=== PATIENT | male | born 1940 | race Caucasian/White ===

== ENCOUNTER 2019-11-06 14:16 | Outpatient (CLI) | payer MEDICARE, SELFPAY ==
--- NOTE | 2019-11-06 14:36 | XR_ITS ---
WS: [id number] XR chest 2V* 21266 REASON FOR EXAM: J44.0 R06.02 FINDINGS: The cardiac silhouette is not grossly enlarged there is arteriosclerotic changes seen in th e arch the aorta. The peripheral lungs are well aerated. There is no pneumonia, pleural effusion, pulmonary edema, or m ass effect. The hilum is and apices are normal. No osseous abnormalities. XR/XR chest 2V* 19029 IMPRESSION: Arteriosclerotic changes.
== END 2019-11-06 14:17 | disposition home or self-care (01) ==
LOC: RAD 14:20
PROVIDERS: Family Provider Internal Medicine; PCP Internal Medicine; Visit Provider Internal Medicine Nephrology
DX: I70.0 Atherosclerosis of aorta (principal)
CPT/HCPCS: 71046

== ENCOUNTER 2019-11-20 17:01 | Emergency (ER) | payer MEDICARE, SELFPAY ==
[2019-11-20 17:16] VITALS: BP 163/73; PULSE 77; RESP 14; TEMP 36.4; O2SAT 100; BMI 37.9
--- NOTE | 2019-11-20 17:21 | XR_ITS ---
WS: [id number] CHEST XRAY TECHNIQUE: Portable chest. CLINICAL INFORMATION: chest pain COMPARISON: November 06, 2019 FINDINGS: Heart: Cardiomegaly. Aortic calcification. Lungs: Lungs are clear. No consolidation or pleural effusion. No acute pulmonary infiltrates. Bones: Normal visualized bony structures. XR/XR chest 1V portable [id number] IMPRESSION: No acute chest findings
--- NOTE | 2019-11-20 17:21 | ECG_ITS ---
Measurements Intervals [place] Rate: 77 P: [place]: 0 QRS: 131 QRSD: 167 T: -9 QT: 450 QTc: 512 ATRIAL FIBRILLATION WITH ABERRANT CONDUCTION OR VENTRICULAR PREMATURE COMPLEXES MARKED RIGHT AXIS DEVIATION [QRS AXIS > 100] RIGHT BUNDLE BRANCH BLOCK [120+ ms QRS DURATION, UPRIGHT V1, 40+ ms S IN I/ I/aVL/V4/V5/V6] Compared to ECG 03/07/2018 03:26:56 Ventricular premature complex(es) now present Aberrant conduction of supraventricular beat(s) now present Electronically Signed On 11-20-2019 20:51:20 CDT by Prem Buchanan M.D. [email or web address]
--- NOTE | 2019-11-20 17:29 | W.ED.CHESTPA ---
HPI - Chest Pain General: Chief Complaint: Chest Pain Stated Complaint: cp Time Seen by Provider: 11/20/19 17:21 History of Present Illness: HPI narrative: Patient is an 79-year-old gentleman who presents today with chest pain and high blood pressure. He says that his home health nurse noticed his blood pressure was high and gave him a nitro glycerin tablet. He said it helped the chest pain that he was having at that time. He denies any prior history of heart attacks but does take isosorbide mononitrate. He is on peritoneal dialysis. He says he has been having this chest pain off and on for about 2 weeks. He feels pinching on his left side when he moves his arm. He is not sure if it is worse when he is active. He does not feel short of breath. He does have swelling in his legs but that is unchanged for him. He denies cough or shortness of breath. There is no rash on the skin. He said he can feel it up under his shoulder blade. MD complaint: chest pain Pertinent past history: coronary artery disease Onset (ago): week(s) (2) Timing of current episode: episodic Onset: during rest Pain location: left chest and lateral Pain radiation: none Severity: moderate Quality: sharp (Like he is being cut with a knife) Relieving factors: nitroglycerin Exacerbating factors: movement (Movement of his left arm) and other Associated symptoms: Reports fever(s); Deny abdominal pain, dyspnea, nausea or vomiting Review of Systems General: Reports: 10 or more systems reviewed and unremarkable except in HPI and below Const: Reports: fever(s), chills and change in weight Eyes: Denies: change in vision ENMT: Denies: odynophagia Card: Denies: chest pain or swelling of feet/ankles Resp: Denies: dyspnea, productive cough or non-productive cough GI: Denies: abdominal pain, nausea or vomiting : Denies: flank pain Musc: Denies: neck pain or back pain Skin/Breast: Denies: rash Neuro: Denies: headache(s), numbness in extremities or weakness in extremities Derek/Lymph: Denies: easy bruising or easy bleeding PFSH ED PFSH: Social History Smoking and tobacco status: former smoker Physical Exam Const: COMMON NORMALS: no acute distress, patient oriented x3, no limitations and alert GENERAL APPEARANCE: cooperative and comfortable NUTRITIONAL APPEARANCE: obese morbidly obese HENMT: HEAD & SCALP: normal to inspection FACE & SINUS: normal facial exam Eye: GENERAL EYE: appearance normal, both eyes and all related structures Neck/C-Spine: COMMON NORMALS: supple, no meningeal signs and no JVD Chest: COMMONS NORMALS: normal inspection of the chest Resp: COMMON NORMALS: normal respiratory effort, No use of accessory muscles and clear to auscultation bilaterally AUSCULTATION: clear to auscultation bilaterally Cardio: COMMON NORMALS: no JVD, regular rate, regular rhythm and No murmurs present (Cardio) RATE: regular rate RHYTHM: regular rhythm GI: COMMON NORMALS: Normal to inspection, nondistended, normoactive bowel sounds present, Soft to palpation and non-tender INSPECTION: Yes other (Peritoneal dialysis catheter in the right lower abdomen) AUSCULTATION: Yes normoactive bowel sounds PALPATION: Yes Soft to palpation Back/Pelvis: COMMON NORMALS: thoracic and lumbar spine normal to inspection Extremity: COMMON NORMALS: normal to inspection; negative for no pedal edema GENERAL: No calf tenderness Neuro: COMMON NORMALS: patient oriented x3, moves all extremities, no focal motor deficits and no sensory deficits noted SENSORIUM/ORIENTATION: Yes alert MENINGEAL SIGNS: Yes no meningeal signs Psych: COMMON NORMALS: mental status grossly normal, cooperative and normal affect Skin: COMMON NORMALS: no rashes or lesions noted and turgor normal GENERAL SKIN EXAM: no rashes or lesions noted and turgor normal Course ED course: Patient is pain-free in the department. He reports that pain was relieved by nitroglycerin given by his home health nurse. Initial EKG shows A. fib with a wide QRS complex but no acute ST changes. Chest x-ray unremarkable. Labs show the expected electrolyte and kidney abnormalities as well as an elevated troponin of 125. This could be related to his kidney function as well and a delta troponin will be obtained in 2 hours. Reevaluation(s): Reevaluation #1: Patient has had no complaints since being in the ER. His EKGs are abnormal but at baseline. His initial troponin was elevated, likely related to his renal disease. The delta troponin actually decreased. His chest pain is very atypical and related to movement of his arm. He describes it as a pinching or cutting in his skin. We discussed the possibility of shingles however it is been going on for long enough that there should be some evidence of that were that the case. He is due to take his normal blood pressure medications. He is having symptoms of a UTI and does have positive leukocyte esterase on his urine. I told Zenon to try an oral antibiotic although he said that last time he had a UTI he had to be on shots which makes me wonder about resistance. I sent a culture and look for prior culture results but did not find any. He also has an elevated INR at 5. He understands the implications of this. I instructed him to stop his Coumadin which he normally takes in the morning. He will not take it Tuesday or . afternoon he will go to [facility] and have his INR checked. He will continue his peritoneal dialysis. We discussed the option of admitting him to the hospital for further evaluation of his heart. He understands that the testing we do in the ER is not a final diagnosis that there is no heart issue. He prefers to go home and follow-up as an outpatient. Vital Signs: Vital signs: Vital Signs Temperature 97.5 F L 11/20/19 17:16 Pulse Rate 63 11/20/19 21:29 Respiratory Rate 18 11/20/19 21:29 Blood Pressure 159/127 11/20/19 21:29 Pulse Oximetry 98 11/20/19 21:29 MDM - Chest Pain Lab Data: Labs: Lab Results 11/20/19 11/20/19 11/20/19 Range/Units 17:43 17:43 17:43 WBC 9.1 (4.0-10.0) 10^3/ uL RBC 4.53 (4.1-5.3) 10^6/u L Hgb 14.4 (11.7-16.6) g/dL Hct 43.1 (42.0-52.0) % MCV 95.1 H (80-94) fL MCH 31.8 (28.0-34.0) pg MCHC 33.4 (30.0-36.0) g/dL RDW 12.8 (12.1-15.1) % Plt Count 169 (130-400) 10^3/c mm MPV 10.0 (7.4-10.4) fL Neut % (Auto) 59.3 % Lymph % (Auto) 22.9 % Gonzales % (Auto) 11.5 % Eos % (Auto) 5.5 % Baso % (Auto) 0.6 % Neut # (Auto) 5.4 (1.8-7.7) 10^3/u L Lymph # (Auto) 2.1 (0.8-4.8) 10^3/u L Gonzales # (Auto) 1.0 H (0.2-0.9) 10^3/u L Eos # (Auto) 0.5 (0.0-0.8) 10^3/u L Baso # (Auto) 0.1 (0.0-0.1) 10^3/u L Nucleated RBC % (a uto) 0 % Nucleated RBCs # 0.0 /100WBC PT 52.80 H (10.5-13.3) SECO NDS INR 5.57 H* (0.8-1.2) APTT 43.9 H (23.9-36.7) SECO NDS Sodium 130 L (136-145) mmol/L Potassium 3.9 (3.5-5.1) mmol/L Chloride 90 L (98-107) mmol/L Carbon Dioxide 25 (22-29) mmol/L Anion Gap 18.9 (5-19) BUN 74 H (8-23) mg/dL Creatinine 3.9 H (0.7-1.2) mg/dL Glucose 187 H (65-115) mg/dL Calculated Osmolal ity 274 L (285-295) mOsm/k g Calcium 9.9 (8.5-10.5) mg/dL Total Bilirubin 0.3 (0.15-1.2) mg/dL AST 33 (0-40) U/L ALT 27 (0-41) U/L Alkaline Phosphata se 128 (40-130) IU/L Troponin T Baselin e (0-15) ng/mL Troponin T 120 Min maksim (0-15) ng/mL Delta Troponin T (0-10) ABS# Total Protein 8.2 (6.6-8.7) g/dL Albumin 4.0 (3.5-5.2) g/dL Globulin 4.2 (1.3-4.6) g/dL Urine Color (Yellow) Urine Appearance (CLEAR) Urine pH (5-7) Ur Specific Gravit y (1.005-1.030) Urine Protein (Negative) Urine Glucose (UA) (Normal) Urine Ketones (Negative) Urine Blood (Negative) Urine Nitrate (Negative) Urine Bilirubin (NEGATIVE) Urine Urobilinogen (Negative) mg/dL Ur Leukocyte Kierra ase (Negative) Urine RBC (0-2) /hpf Urine WBC (0-5) /hpf Ur Squamous Epith Cells (0-5) Urine Bacteria (NONE) Urine Yeast 11/20/19 11/20/19 11/20/19 Range/Units 17:43 18:32 19:24 WBC (4.0-10.0) 10^3/ uL RBC (4.1-5.3) 10^6/u L Hgb (11.7-16.6) g/dL Hct (42.0-52.0) % MCV (80-94) fL MCH (28.0-34.0) pg MCHC (30.0-36.0) g/dL RDW (12.1-15.1) % Plt Count (130-400) 10^3/c mm MPV (7.4-10.4) fL Neut % (Auto) % Lymph % (Auto) % Gonzales % (Auto) % Eos % (Auto) % Baso % (Auto) % Neut # (Auto) (1.8-7.7) 10^3/u L Lymph # (Auto) (0.8-4.8) 10^3/u L Gonzales # (Auto) (0.2-0.9) 10^3/u L Eos # (Auto) (0.0-0.8) 10^3/u L Baso # (Auto) (0.0-0.1) 10^3/u L Nucleated RBC % (a uto) % Nucleated RBCs # /100WBC PT (10.5-13.3) SECO NDS INR (0.8-1.2) APTT (23.9-36.7) SECO NDS Sodium (136-145) mmol/L Potassium (3.5-5.1) mmol/L Chloride (98-107) mmol/L Carbon Dioxide (22-29) mmol/L Anion Gap (5-19) BUN (8-23) mg/dL Creatinine (0.7-1.2) mg/dL Glucose (65-115) mg/dL Calculated Osmolal ity (285-295) mOsm/k g Calcium (8.5-10.5) mg/dL Total Bilirubin (0.15-1.2) mg/dL AST (0-40) U/L ALT (0-41) U/L Alkaline Phosphata se (40-130) IU/L Troponin T Baselin e 125 H* (0-15) ng/mL Troponin T 120 Min maksim 106.8 H (0-15) ng/mL Delta Troponin T -18.2 L (0-10) ABS# Total Protein (6.6-8.7) g/dL Albumin (3.5-5.2) g/dL Globulin (1.3-4.6) g/dL Urine Color Yellow (Yellow) Urine Appearance Turbid (CLEAR) Urine pH 5 (5-7) Ur Specific Gravit y 1.015 (1.005-1.030) Urine Protein 3+ H (Negative) Urine Glucose (UA) 1+ (Normal) Urine Ketones Negative (Negative) Urine Blood 3+ H (Negative) Urine Nitrate Negative (Negative) Urine Bilirubin Neg (NEGATIVE) Urine Urobilinogen Norm (Negative) mg/dL Ur Leukocyte Kierra ase 2+ H (Negative) Urine RBC 10-15 H (0-2) /hpf Urine WBC Too numerous to c nt H (0-5) /hpf Ur Squamous Epith Cells 0-4 H (0-5) Urine Bacteria 2+ H (NONE) Urine Yeast Trace EKG Data^: EKG 1: EKG interpretation date: 11/20/19 EKG interpretation time: 17:21 Interpretation: A fib, rate 77. Wide QRS complex, 167 msec. RAD, RBBB. No acute ST ischemia Discharge Plan Discharge Patient Disposition: Home, Self-Care Clinical Impression: Atypical chest pain, Warfarin-induced coagulopathy, Peritoneal dialysis status Condition: Stable Prescriptions: New cefdinir 300 mg capsule 300 mg PO DAILY 5 Days Qty: 10 RF: 0 No Action atorvastatin 20 mg tablet 20 mg PO BEDTIME RF: 0 metolazone 5 mg tablet 5 mg PO DAILY RF: 0 amlodipine 5 mg tablet 5 mg PO DAILY RF: 0 warfarin 4 mg tablet See Rx Instructions .ROUTE .COMPLEX RF: 0 isosorbide mononitrate 60 mg tablet extended release 24 hr 60 mg PO DAILY RF: 0 potassium chloride 20 mEq tablet,ER particles/crystals 20 meq PO BID RF: 0 tamsulosin 0.4 mg capsule 0.4 mg PO BEDTIME RF: 0 furosemide 80 mg tablet 80 mg PO BID RF: 0 calcitriol 0.5 mcg capsule See Rx Instructions .ROUTE .COMPLEX RF: 0 Colace 100 mg capsule 100 mg PO BID RF: 0 gentamicin 0.1 % cream See Rx Instructions .ROUTE .COMPLEX RF: 0 rosuvastatin 10 mg tablet 10 mg PO DAILY RF: 0 Tresiba FlexTouch U-100 100 unit/mL (3 mL) insulin pen 5 unit SUBCUT BEDTIME RF: 0 RenaPlex-D 800 mcg-12.5 mg -2,000 unit tablet 1 tab PO DAILY RF: 0 Referrals: Tyler Billy DO [Primary Care Provider] - Discharge Diet: Usual diet Discharge Activity: Resume usual activity Patient Instructions: Chest Pain (ED) Activity Restrictions/Additional Instructions: DO NOT take your warfarin on Tuesday or . Go to [facility] to have your PT/INR checked on . Continue your other medications. Return to the ED if new or worse symptoms. Continue your dialysis. Discharge Date/Time: 11/20/19 21:31 Coding Level of Care Code ED Clothes Ironer for Landry Maria Exam Comprehensive
[2019-11-20 17:51] LABS: Basophils # 0.1 10^3/uL (0.0-0.1); Basophils % 0.6 %; Eosinophils # 0.5 10^3/uL (0.0-0.8); Eosinophils % 5.5 %; Hematocrit 43.1 % (42.0-52.0); Hemoglobin 14.4 g/dL (11.7-16.6); Lymphocytes # 2.1 10^3/uL (0.8-4.8); Lymphocytes % 22.9 %; Mean Corpuscular HGB Conc 33.4 g/dL (30.0-36.0); Mean Corpuscular Hemoglobin 31.8 pg (28.0-34.0); Mean Corpuscular Volume 95.1 fL (80-94); Monocytes % 11.5 %; Neutrophils # 5.4 10^3/uL (1.8-7.7); Neutrophils % 59.3 %; Nucleated Red Blood Cells % 0 %; Platelet Count 169 10^3/cmm (130-400); Red Blood Count 4.53 10^6/uL (4.1-5.3); Red Cell Distribution Width 12.8 % (12.1-15.1); White Blood Count 9.1 10^3/uL (4.0-10.0)
[2019-11-20 18:10] LABS: Partial Thromboplastin Time 43.9 SECONDS (23.9-36.7)
[2019-11-20 18:21] LABS: Alanine Aminotransferase 27 U/L (0-41); Alkaline Phosphatase 128 IU/L (40-130); Anion Gap 18.9 (5-19); Aspartate Amino Transferase 33 U/L (0-40); Blood Urea Nitrogen 74 mg/dL (8-23); Calcium 9.9 mg/dL (8.5-10.5); Carbon Dioxide 25 mmol/L (22-29); Chloride 90 mmol/L (98-107); Globulin 4.2 g/dL (1.3-4.6); Glucose 187 mg/dL (65-115); Osmolality Calculated 274 mOsm/kg (285-295); Potassium 3.9 mmol/L (3.5-5.1); Sodium 130 mmol/L (136-145); Total Bilirubin 0.3 mg/dL (0.15-1.2); Total Protein 8.2 g/dL (6.6-8.7)
[2019-11-20 18:32] LABS: Troponin(5th) Baseline 125 ng/mL (0-15)
[2019-11-20 18:40] LABS: INR 5.57 (0.8-1.2)
[2019-11-20 19:57] LABS: Add Urine Microscopic? YES; Bilirubin Urine Neg (NEGATIVE); Blood Urine 3+ (Negative); Glucose Urine UA 1+ (Normal); Ketones Urine Negative (Negative); Leukocyte Esterase Urine 2+ (Negative); Nitrate Urine Negative (Negative); Protein Urine 3+ (Negative); Specific Gravity, Urine 1.015 (1.005-1.030); Urine Appearance Turbid (CLEAR); Urine Color Yellow (Yellow); Urobilinogen Urine Norm (Negative); pH Urine 5 (5-7)
[2019-11-20 20:31] LABS: Add Urine Culture? Yes; Bacteria Urine 2+; Squamous Epithelial Cell Urine 0-4 (0-5); WBC Urine TOO NUMEROUS TO CNT /hpf (0-5)
[2019-11-20 20:31] LABS: Troponin 5 2HR 106.8 ng/mL (0-15); Troponin 5 2HR Delta -18.2 ABS# (0-10)
[2019-11-20 21:29] VITALS: BP 159/127; PULSE 63; RESP 18; O2SAT 98
[2019-11-20] MEDS: cefdinir 300 MG CAPSULE PO (21:29)
--- NOTE | 2019-11-20 23:21 | ECG_ITS ---
Measurements Intervals [place] Rate: 70 P: [place]: 0 QRS: 131 QRSD: 173 T: -8 QT: 480 QTc: 521 ATRIAL FIBRILLATION WITH ABERRANT CONDUCTION OR VENTRICULAR PREMATURE COMPLEXES RIGHT BUNDLE BRANCH BLOCK [120+ ms QRS DURATION, UPRIGHT V1, 40+ ms S IN I/aVL/V4/V5/V6] LEFT POSTERIOR FASCICULAR BLOCK [QRS AXIS > 109, INFERIOR Q] Compared to ECG 03/07/2018 03:26:56 Ventricular premature complex(es) now present Aberrant conduction of supraventricular beat(s) now present Left posterior fascicular block now present Right-axis deviation no longer present Electronically Signed On 11-20-2019 20:56:59 CDT by Prem Buchanan M.D. [id number]
== END 2019-11-20 21:31 | disposition home or self-care (01) ==
PROVIDERS: Emergency Provider Emergency Medicine; PCP Internal Medicine
DX: R07.89 Other chest pain (principal); D68.8 Other specified coagulation defects; Z99.2 Dependence on renal dialysis; Z79.01 Long term (current) use of anticoagulants; Z79.4 Long term (current) use of insulin; Z87.891 Personal history of nicotine dependence; Z79.899 Other long term (current) drug therapy
CPT/HCPCS: 12345; 36415; 71045; 80053; 81001; 84484; 85025; 85610; 85730; 87077; 87086; 87186; 93005; 99283; 99284